=== PATIENT | male | born 1965 | race Caucasian/White ===

== ENCOUNTER 2020-04-23 16:52 | Emergency (ER) | payer MEDICARE ==
[~2020-04-23] VITALS: Ht 190.5 cm; Wt 140.6 kg
--- NOTE | 2020-04-23 17:05 | NUR ---
PT IS IN ROOM #1A. DR SANTANA EVALUATED THE PT.
[2020-04-23 18:08] LABS: *BLOOD, URINE 2+ (NEGATIVE); *CLARITY,URINE TURBID (CLEAR); *COLOR,URINE Brown (YELLOW); *KETONES,URINE 1+ (NEGATIVE); LEUKOCYTE ESTERASE ,URINE 3+ (NEGATIVE); NITRITE, URINE POSITIVE (NEGATIVE); UGLUCOSE TRACE (NEGATIVE)
[2020-04-23 18:09] LABS: *BILIRUBIN,URIN 2+ (NEGATIVE)
[2020-04-23] MEDS ORDERED: CIPROFLOXACIN HCL 250 MG TABLET PO ONE (18:15)
[2020-04-23] MEDS ORDERED: CIPROFLOXACIN HCL 250 MG TABLET ONE (18:24)
[2020-04-23] MEDS ORDERED: OXYCODONE/APAP 5-325 MG TABLET PO ONE (18:30)
[2020-04-23] MEDS ORDERED: PHENAZOPYRIDINE HCL 100 MG TABLET PO ONE (18:30)
[2020-04-23] MEDS ORDERED: PHENAZOPYRIDINE HCL 100 MG TABLET ONE (18:32)
[2020-04-23] MEDS ORDERED: OXYCODONE/APAP 5-325 MG TABLET ONE (18:32)
--- NOTE | 2020-04-23 18:35 | NUR ---
PT WAS D/C TO HOME. D/C INSTRUCTIONS GIVEN TO THE PT BY DR SANTANA.
[2020-04-23 18:37] VITALS: BP 139/97
[2020-04-23 20:43] LABS: WBC,URINE TNTC /HPF (0-3)
[2020-04-23 20:44] LABS: BACTERIA,URINE MODERATE /HPF (NONE SEEN); SQUAMOUS EPITHELIAL CELL,UR FEW /HPF (NONE SEEN)
== END 2020-04-23 18:38 | disposition home or self-care (01) ==
LOC: ER 16:52
DX: N39.0 Urinary tract infection, site not specified (principal); R31.0 Gross hematuria; Z98.1 Arthrodesis status; Z87.442 Personal history of urinary calculi; E11.9 Type 2 diabetes mellitus without complications
CPT/HCPCS: 87077; 87086; A4663

== ENCOUNTER 2020-04-25 15:10 | Emergency (ER) | payer MEDICARE ==
[~2020-04-25] VITALS: Ht 190.5 cm; Wt 140.6 kg
--- NOTE | 2020-04-25 15:49 | NUR ---
PT IS IN ROOM #1A. DR FORTE EVALUATED THE PT.
[2020-04-25 15:58] LABS: BASOPHILS % (AUTO) 0.2 % (0.0-2.0); EOSINOPHILS % (AUTO) 0.1 % (0.0-7.0); HEMATOCRIT 40.7 % (36.7-47.1); HEMOGLOBIN 13.3 g/dL (12.5-16.3); LYMPHOCYTES # (AUTO) 0.4 K/uL (20.0-40.0); LYMPHOCYTES % (AUTO) 4.4 % (20.5-51.5); MEAN CORPUSCULAR HEMOGLOBIN 23.5 uug (23.8-33.4); MEAN CORPUSCULAR HGB CONC 33 g/dL (32.5-36.3); MEAN CORPUSCULAR VOLUME 71.6 fL (73.0-96.2); MONOCYTES # (AUTO) 0.4 K/uL (2.0-10.0); MONOCYTES % (AUTO) 3.8 % (0.0-11.0); NEUTROPHILS # (AUTO) 8.8 K/uL (1.8-8.9); NEUTROPHILS % (AUTO) 91.5 % (38.5-71.5); PLATELET COUNT (AUTO) 154 K/uL (152-348); RED BLOOD CELL COUNT(AUTO) 5.69 MIL/uL (4.06-5.63); WHITE BLOOD COUNT (AUTO) 9.6 K/uL (3.6-10.2)
[2020-04-25 15:59] LABS: CREATININE 1.4 mg/dL (0.6-1.3); POTASSIUM 3.9 mmol/L (3.5-5.1)
[2020-04-25 16:04] LABS: BILIRUBIN,DIRECT 0.3 mg/dL (0.0-0.2); BILIRUBIN,TOTAL 0.7 mg/dL (0.2-1.0); TOTAL PROTEIN, SERUM 8.2 g/dL (6.4-8.2)
[2020-04-25 16:08] LABS: *CLARITY,URINE SLIGHTLY CLOUDY (CLEAR); *COLOR,URINE Brown (YELLOW); *KETONES,URINE 2+ (NEGATIVE); *UROBILINOGEN,URINE >=8.0 E.U./dl (NORMAL); LEUKOCYTE ESTERASE ,URINE 3+ (NEGATIVE); NITRITE, URINE POSITIVE (NEGATIVE)
[2020-04-25 16:10] LABS: *BILIRUBIN,URIN 3+ (NEGATIVE); *BLOOD, URINE TRACE (NEGATIVE); UGLUCOSE 1+ (NEGATIVE)
[2020-04-25] MEDS ORDERED: MORPHINE SULFATE 4 MG/1 ML DISP.SYRIN ONE (16:14)
[2020-04-25] MEDS ORDERED: CEFTRIAXONE /D5W 50ML IVPB **ER PYXIS IV ONE (16:15)
[2020-04-25] MEDS ORDERED: CEFTRIAXONE 1 G in IV DEXTROSE 5% 50 ML IV ONE (16:15)
[2020-04-25] MEDS ORDERED: MORPHINE SULFATE 4 MG/1 ML DISP.SYRIN IV ONE (16:15)
[2020-04-25] MEDS ORDERED: ONDANSETRON 4 MG/2 ML VIAL IV ONE (16:15)
[2020-04-25] MEDS ORDERED: ONDANSETRON 4 MG/2 ML VIAL ONE (16:15)
[2020-04-25 17:06] LABS: BACTERIA,URINE FEW /HPF (NONE SEEN); SQUAMOUS EPITHELIAL CELL,UR FEW /HPF (NONE SEEN)
--- NOTE | 2020-04-25 17:55 | NUR ---
PT WAS D/C'd TO HOME. D/C INSTRUCTIONS GIVEN TO THE PT BY DR FORTE.
[2020-04-25 17:56] VITALS: BP 136/91
[2020-04-25 18:45] LABS: BAND % (MANUAL) 2 % (0-10); LYMPHOCYTES % (MANUAL) 8 % (20-40); MONOCYTES % (MANUAL) 2 % (2-10); NEUTROPHILS % (MANUAL) 88 % (42-75)
--- NOTE | 2020-04-26 20:26 | NUR ---
called and spoke with the patient. Informed patient of PSA and gave him urologist referrals for immediate followup, stressing concerns including possible malignancy. Encouraged to return immediately if fever or other worsening symptoms. patient instructed to take both the cipro and the keflex to cover for mixed bacteria in the urine culture.
== END 2020-04-25 17:57 | disposition home or self-care (01) ==
LOC: ER 15:10
DX: N39.0 Urinary tract infection, site not specified (principal); R31.0 Gross hematuria; R80.9 Proteinuria, unspecified; E11.65 Type 2 diabetes mellitus with hyperglycemia; N28.9 Disorder of kidney and ureter, unspecified; Z87.442 Personal history of urinary calculi
CPT/HCPCS: 36415; 80048; 80076; 81001; 84153; 85007; 85025; 85730; 87086; 96365; 96375; 99284; J0696; J2270; J2405; 70030-TC; A4663

== ENCOUNTER 2020-04-28 20:26 | Emergency (ER) | payer MEDICARE ==
[~2020-04-28] VITALS: Ht 190.5 cm; Wt 141.1 kg
--- NOTE | 2020-04-28 20:49 | NUR ---
Patient discharged to home in stable condition. Written and verbal after care instructions given. Patient verbalizes understanding of instructions. Stressed follow up or return to ER for worsening s/s.
[2020-04-28 20:51] VITALS: BP 136/78
== END 2020-04-28 20:53 | disposition home or self-care (01) ==
LOC: ER 20:28
DX: Z76.0 Encounter for issue of repeat prescription (principal); N39.0 Urinary tract infection, site not specified; Z87.442 Personal history of urinary calculi; E11.9 Type 2 diabetes mellitus without complications
CPT/HCPCS: A4663